=== PATIENT | male | born 1965 | race African-American/Black ===

== ENCOUNTER 2024-01-13 12:38 | Outpatient (AMB) | payer MEDICARE, MEDICAID, SELFPAY ==
[2024-01-13 12:44] VITALS: BMI 36.6
--- NOTE | 2024-01-13 12:44 | A.OFFVIS_ITS ---
VS Expanded 01/13/24 12:44 01/15/24 10:20 Height 5 ft 5.5 in 5 ft 5.5 in Weight 223 lb 8.78 oz 223 lb BMI 36.6 36.5 Intake Visit Reasons: Obesity Nutrition Presentation Details: Pt presents for MNT for obesity.The patient was referred by Glen Yung Patient presents with mom who is the main ocular care aide. Pt reports he had stopped going to the gym however will be rejoining next week Typical meal intake B: cold creal rice ckrispes ot ttal or hot cereal , orange and apple juice and fruit or grits with butter L: Soup and a salad (out work), water or juice Dinner: Potatoes chicken breaded, green beans, juice or water Snacks : Crackers, cookies, choose pudding, Food frequency fish: 1 x/wk Vegetables: To servings a day Milk: 3 servings per day Starches: Greater than 25 servings a day Fruits: 3+ a day and often juice BS Monitoring Most Recent Diabetes Results: No Data to Display NZI-Teyaghm-Rm.Jeor Equation Height: 5 ft 5.5 in Weight: 223 lb Resting Metabolic Rate: 1779.79 Calculated Activity Level: Mild Activity Calories Needed to Maintain Weight: 2447.21 Diagnosis Nutrition problem #1: excessive energy intake As related to (etiology) #1: diagnosis and physical inactivity As evidenced by (sign/symptom) #1: knowledge deficit of diet Assessment & Plan Assessment & Plan (1) Obesity (BMI 30-39.9): Code(s): E66.9 - Obesity, unspecified Category: Medical Plan: Wt: 101 Kg ( 01/2024 ) Est kcal needs as per MSJ: 2400 (40% carb, 30% protein/fat) Est fluid needs as per 25-30 ml/d: 3000 Est prot per day as per 1 g/kg bw: 101 Recommend fiber intake : 8-10 g per day and gradually increase to 25-28 g per day for women and 35-38 g for men or as tolerated Recommend sodium intake per day : less than 2000 mg Educated patient on: ( R = reviewed V = verbalizes understanding N/R = needs review N/A = not applicable * Food sources of carbohydrate, adequate serving sizes and its role in various health conditions: R * Differences between complex carbohydrates a simple carbohydrates, role of fiber in diet: R * Lean protein sources of foods: R V NR * Differences between types of fats and role in diet (mono on saturated fat fatty acids, saturated fatty acids, trans fats): R * Food sources of sodium in salt and healthy modifications for heart health in kidney health: R V R/V * Vitamins and minerals: R V N/R * Healthy plate method concept: R V N/R * Physical activity: Benefits a precaution: R * Patient Instructions: Reduce on sugar from beverages- 1/2 cup of juice and the rest with water follow healthy plate method at dinner time (reducing on fats added to the foods) Coding Level of Care Code Nutr Indiv Intake (53699) Diagnoses Obesity (BMI 30-39.9) E66.9 Time Spent (min) 30
[2024-01-15 10:20] VITALS: BMI 36.5
== END 2024-01-13 13:25 | disposition home or self-care (01) ==
PROVIDERS: Visit Provider Dietitian, Registered
DX: E66.9 Obesity, unspecified (principal)

== ENCOUNTER → 2024-01-13 12:38 | Outpatient (BNVA) | payer MEDICARE, MEDICAID, SELFPAY | PROVIDERS: Visit Provider Dietitian, Registered | DX: E66.09 Other obesity due to excess calories (principal); Z68.36 Body mass index [BMI] 36.0-36.9, adult; Z71.3 Dietary counseling and surveillance | CPT/HCPCS: 97802 ==

== ENCOUNTER 2024-04-27 11:14 | Outpatient (AMB) | payer MEDICARE, MEDICAID, SELFPAY ==
[2024-04-27 11:20] VITALS: BMI 33.8
--- NOTE | 2024-04-27 11:20 | A.OFFVIS_ITS ---
VS Expanded 04/27/24 11:20 Height 5 ft 5.55 in Weight 206 lb 5.643 oz BMI 33.8 Intake Visit Reasons: obesity/CONFIRMED Nutrition Presentation Details: Pt presents for MNt f/u for obesity. Pt presents with his mom to this appt Pt reports doing well, working on reducing on sugary beverages (sodas, coffee, juice drinks) Pt reports walking at work and also participating in gym for 45 minutes twice a week. Mom reports cooking with less fat BS Monitoring Most Recent Diabetes Results: No Data to Display Assessment & Plan Assessment & Plan (1) Obesity (BMI 30-39.9): Code(s): E66.9 - Obesity, unspecified Category: Medical Plan: Wt: 101 Kg ( 01/2024 ) 94 kg (04/2024) Est kcal needs as per MSJ: 2400 (40% carb, 30% protein/fat) Est fluid needs as per 25-30 ml/d: 3000 Est prot per day as per 1 g/kg bw: 101 Recommend fiber intake : 8-10 g per day and gradually increase to 25-28 g per day for women and 35-38 g for men or as tolerated Recommend sodium intake per day : less than 2000 mg Educated patient on: ( R = reviewed V = verbalizes understanding N/R = needs review N/A = not applicable * Food sources of carbohydrate, adequate serving sizes and its role in various health conditions: R * Differences between complex carbohydrates a simple carbohydrates, role of fiber in diet: R * Lean protein sources of foods: R * Differences between types of fats and role in diet (mono on saturated fat fatty acids, saturated fatty acids, trans fats): R * Food sources of sodium in salt and healthy modifications for heart health in kidney health: R * Vitamins and mals: R * Healthy plate method concept: R V * Physical activity: Benefits a precaution: R ,V Patient Instructions: Keep hydrated by having water with meals /snacks Have a fruit in place of juice Be mindful of high salt foods (highly processed foods, sauces, condiments) see l ist of lower sodium food options , read food labels , choosing low % for sodium per serving sizes , goal less thn 2300 mg of sodium per day unless otherwise specified by your doctor Coding Level of Care Code Nutr Indiv Subseq (25856) Diagnoses Obesity (BMI 30-39.9) E66.9 Time Spent (min) 30
== END 2024-04-27 11:52 | disposition home or self-care (01) ==
PROVIDERS: Visit Provider Dietitian, Registered
DX: E66.9 Obesity, unspecified (principal)

== ENCOUNTER → 2024-04-27 11:14 | Outpatient (BNVA) | payer MEDICARE, SELFPAY | PROVIDERS: Visit Provider Dietitian, Registered | DX: E66.9 Obesity, unspecified (principal); Z68.33 Body mass index [BMI] 33.0-33.9, adult; Z71.3 Dietary counseling and surveillance | CPT/HCPCS: 97803 ==

== ENCOUNTER 2024-10-08 14:37 | Outpatient (AMB) | payer MEDICARE, MEDICAID, SELFPAY ==
[2024-10-08 14:41] VITALS: BMI 36.2
--- NOTE | 2024-10-08 14:41 | A.OFFVIS_ITS ---
VS Expanded 10/08/24 14:41 Height 5 ft 5.5 in Weight 220 lb 14.451 oz BMI 36.2 Intake Visit Reasons: Obesity Nutrition Presentation Details: Pt presents for MNT 6 month f/u for Obesity Pt reports having stopped physical activity (was going to the gym) but planning to restart in November Breakfast: grits or cream or rice fruit or juice , tea lemon Lunch: sandwich 12 with chip, water or water with lemon or juice Dinner: baked sweet potato,chicken and broccoli , tea with lemon, no sugar added snacks: pastries, fruits, crackers, dairy: 0-1/d fruits: 0-1/d ve serving/d fish: 0-1/wk starches > 30/d etoh/smoking denies mvi-no BS Monitoring Most Recent Diabetes Results: No Data to Display Assessment & Plan Assessment & Plan (1) Obesity (BMI 30-39.9): Code(s): E66.9 - Obesity, unspecified Category: Medical Plan: Wt: 101 Kg ( 01/2024 ) 94 kg (04/2024) , 100kg (10/06) Est kcal needs as per MSJ: 2400 (40% carb, 30% protein/fat) Est fluid needs as per 25-30 ml/d: 3000 Est prot per day as per 1 g/kg bw: 101 Recommend fiber intake : 8-10 g per day and gradually increase to 25-28 g per day for women and 35-38 g for men or as tolerated Recommend sodium intake per day : less than 2000 mg Educated patient on: ( R = reviewed V = verbalizes understanding N/R = needs review N/A = not applicable * Food sources of carbohydrate, adequate serving sizes and its role in various health conditions: R * Differences between complex carbohydrates a simple carbohydrates, role of fiber in diet: R * Lean protein sources of foods: R * Differences between types of fats and role in diet (mono on saturated fat fatty acids, saturated fatty acids, trans fats): R * Food sources of sodium in salt and healthy modifications for heart health in kidney health: R * Vitamins and mals: R * Healthy plate method concept: R V * Physical activity: Benefits a precaution: R ,V Patient Instructions: Resume reducing on pastries and have a fruit or yogurt as snack (reducing on sugary foods) Dilute juices with water Engage in walking 30 min 3 times a week , unless otherwise specified by your doctor Coding Level of Care Code Nutr Indiv Subseq (83097) Diagnoses Obesity (BMI 30-39.9) E66.9 Time Spent (min) 30
--- OUTSIDE RECORDS SUMMARY | 2024-10-08 17:53 | XMS_ITS | Clinical Summary ---
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 Role Phone Unavailable Primary Care Provider Unavailabl e Social History Tobacco Use Types Packs/Day Years Used Date Smoking Tobacco: Never Assessed Sex and Gender Information Value Date Recorded Sex Assigned at Not on file Legal Sex Male 6:47 AM EST Gender Identity Not on file Sexual Orientation Not on file Plan of Treatment Health Maintenance Due Date Last Done Comments DTaP,Tdap,and Td Vaccines (1 - Tdap) 1986 Hepatitis B Vaccines (1 of 3 - 19+ 3-dose series) 1986 Pneumococcal Vaccine: 50+ Ye ars (1 of 1 - PCV) 2017 Zoster Vaccines (1 of 2) 2017 Cholesterol Screening (Lipid Panel) 07/15/2022 Colorectal Cancer Screening: Colonoscopy 07/15/2022 Depression Screening 07/15/2022 HIV Screening 07/15/2022 Hepatitis C Screening 07/15/2022 Social Influencers of Health Screening 07/15/2022 COVID-19 Vaccine ( - 2023-2 5 season) 2024 Influenza Vaccine (#1) 2024 HIB Vaccines Aged Out No longer eligi ble based on patient's age to complete this topic HPV Vaccines Aged Out No longer eligi ble based on patient's age to complete this topic Hepatitis A Vaccines Aged Out No long er eligible based on patient's age to complete this topic IPV Vaccines Aged Out No longer eligi ble based on patient's age to complete this topic MMR Vaccines Aged Out No longer eligi ble based on patient's age to complete this topic Meningococcal ACWY Vaccine Aged Out N o longer eligible based on patient's age to complete this topic Meningococcal B Vacine Aged Out No lo nger eligible based on patient's age to complete this topic Pneumococcal Vaccine: Pediat rics (0 to 5 Years) and At-Risk Patients (6 to 64 Years) Aged Out No longer eligible b ased on patient's age to complete this topic RSV Immunization Patients Un lolly 20 months Aged Out No longer eligible b ased on patient's age to complete this topic Varicella Vaccines Aged Out No longer eligible based on patient's age to complete this topic Advance Directives Documents on File Type Date Recorded Patient Buffer Automatic Expl anation Health Care Decision (hx) 09/21/2020 AD COHEN DIRECTIVE Health Care Decision (hx) 09/21/2020 AD COHEN DIRECTIVE Health Care Decision (hx) 09/21/2020 AD COHEN DIRECTIVE Health Care Decision (hx) 09/21/2020 AD COHEN DIRECTIVE Health Care Decision (hx) 09/21/2020 AD COHEN DIRECTIVE Health Care Decision (hx) 09/21/2020 AD COHEN DIRECTIVE Health Care Decision (hx) 08/16/2017 AD COHEN DIRECTIVE Health Care Decision (hx) 08/16/2017 AD COHEN DIRECTIVE Health Care Decision (hx) 08/16/2017 AD COHEN DIRECTIVE Health Care Decision (hx) 08/16/2017 AD COHEN DIRECTIVE Health Care Decision (hx) 08/16/2017 AD COHEN DIRECTIVE Health Care Decision (hx) 08/16/2017 AD COHEN DIRECTIVE Health Care Decision (hx) 03/15/2014 AD COHEN DIRECTIVE Health Care Decision (hx) 03/15/2014 AD COHEN DIRECTIVE Health Care Decision (hx) 03/15/2014 AD COHEN DIRECTIVE Health Care Decision (hx) 03/15/2014 AD COHEN DIRECTIVE Health Care Decision (hx) 03/15/2014 AD COHEN DIRECTIVE Health Care Decision (hx) 03/15/2014 AD COHEN DIRECTIVE
== END 2024-10-08 15:12 | disposition home or self-care (01) ==
LOC: HO.ENCR 14:37
PROVIDERS: Visit Provider Dietitian, Registered
DX: E66.9 Obesity, unspecified (principal)

== ENCOUNTER → 2024-10-08 14:37 | Outpatient (BNVA) | payer MEDICARE, SELFPAY | PROVIDERS: Visit Provider Dietitian, Registered | DX: E66.9 Obesity, unspecified (principal); Z68.36 Body mass index [BMI] 36.0-36.9, adult | CPT/HCPCS: 97803 ==